=== PATIENT | female | born 1965 | race Caucasian/White ===

== ENCOUNTER 2021-09-26 06:43 | Inpatient (IN) | payer OTHER ==
[~2021-09-26 06:43] MED LIST: Bupivacaine 0.5% 50 ML MDV ONE; Ketamine 17 MG in Sodium Chloride 0.9% 19.83 ML IV SCH; Ketamine 500 MG/5 ML MDV IV SCH; Lidocaine 1% with EPINEPHrine 1:100,000 50 ML MDV ONE; Meropenem 500 MG SDV ONE; cefOXitin 2 GM Vial ONE
[2021-09-26] MEDS ORDERED: Ondansetron 4 MG/2 ML SDV ONE (07:08)
[2021-09-26] MEDS ORDERED: fentaNYL 250 MCG/5 ML SDV ONE ×2 (07:08→08:42)
[2021-09-26] MEDS ORDERED: Succinylcholine 200 MG/10 ML MDV ONE (07:08)
[2021-09-26] MEDS ORDERED: Propofol 200 MG/20 ML SDV ONE (07:08)
[2021-09-26] MEDS ORDERED: Dexamethasone 4 MG/ML SDV ONE (07:08)
[2021-09-26] MEDS ORDERED: Glycopyrrolate 0.2 MG/ML 5 ML MDV ONE (07:08)
[2021-09-26] MEDS ORDERED: Rocuronium 50 MG/5 ML Vial ONE ×2 (07:08→09:21)
[2021-09-26] MEDS ORDERED: Neostigmine Methylsulfate 1 MG/ML 5 ML Syringe ONE (07:08)
[2021-09-26] MEDS ORDERED: Lactated Ringers 1,000 ML ONE (07:11)
[2021-09-26] MEDS ORDERED: Albuterol/Ipratropium 3.0-0.5 MG/3 ML Neb Soln NEB ONE (07:15)
[2021-09-26] MEDS ORDERED: Celecoxib 200 MG Cap PO ONE (07:16)
[2021-09-26] MEDS ORDERED: Acetaminophen 500 MG Tab PO ONE (07:17)
[2021-09-26] MEDS ORDERED: cefOXitin 2 GM in Sodium Chloride 0.9% 50 ML IV ONE (07:25)
[2021-09-26] MEDS ORDERED: Scopolamine 1.5 MG Transdermal Patch TOP ONE (07:28)
[2021-09-26] MEDS ORDERED: Dextrose 5%-Lactated Ringers 1,000 ML IV SCH ×2 (07:45→12:00)
[2021-09-26 07:52] LABS: HEMOGLOBIN A1C 6.6 % (4.5-6.2)
[2021-09-26] MEDS ORDERED: Labetalol 20 MG/4 ML Syringe ONE (10:00)
[2021-09-26] MEDS ORDERED: 50% Dextrose in Water 50 ML Syringe IVPUSH PRN ×2 (10:54→12:00)
[2021-09-26] MEDS ORDERED: Glucagon,Human Recombinant 1 MG Vial IM PRN ×2 (10:54→12:00)
[2021-09-26] MEDS ORDERED: Insulin Lispro 100 Unit/ML 3 ML KwikPen SUBCUT ONE (11:15)
[2021-09-26] MEDS ORDERED: hydrOXYzine HCL 100 MG/2 ML SDV IM ONE (11:30)
[2021-09-26] MEDS ORDERED: Cyclobenzaprine 10 MG Tab PO PRN (11:52)
[2021-09-26] MEDS ORDERED: diphenhydrAMINE 50 MG/ML SDV IVPUSH PRN (12:00)
[2021-09-26] MEDS ORDERED: oxyCODONE 5 MG Tab PO PRN (12:00)
[2021-09-26] MEDS ORDERED: Labetalol 20 MG/4 ML Syringe IVPUSH PRN (12:00)
[2021-09-26] MEDS ORDERED: hydrOXYzine HCL 100 MG/2 ML SDV IM PRN (12:00)
[2021-09-26] MEDS ORDERED: HYDROmorphone 0.5 MG/0.5 ML Syringe IVPUSH PRN (12:00)
[2021-09-26] MEDS ORDERED: Acetaminophen 500 MG Tab PO PRN (12:00)
[2021-09-26] MEDS ORDERED: Acetaminophen 500 MG Tab PO SCH (12:00)
[2021-09-26] MEDS ORDERED: HYDROmorphone 1 MG/ML Syringe IV PRN (12:00)
[2021-09-26] MEDS ORDERED: Metoclopramide 10 MG/2 ML SDV IVPUSH PRN (12:00)
[2021-09-26] MEDS ORDERED: Albuterol/Ipratropium 3.0-0.5 MG/3 ML Neb Soln INH PRN (12:00)
[2021-09-26] MEDS: Ondansetron 4 MG/2 ML SDV IVPUSH PRN ×2 (12:20→20:51)
[2021-09-26] MEDS: Lactated Ringers 1,000 ML IV SCH (12:22)
[2021-09-26] MEDS ORDERED: Pantoprazole 40 MG Vial IVPUSH SCH (13:00)
[2021-09-26] MEDS: SCOPOLAMINE PATCH CHECK TOP SCH (14:04)
[2021-09-26] MEDS: Albuterol/Ipratropium 3.0-0.5 MG/3 ML Neb Soln INH SCH ×2 (14:11→20:59)
[2021-09-26] MEDS: cefOXitin 2 GM in Sodium Chloride 0.9% 50 ML IV SCH ×2 (14:31→19:58)
[2021-09-26] MEDS: Acetaminophen 500 MG Tab PO SCH ×2 (14:32→22:07)
[2021-09-26] MEDS: Insulin Lispro 100 Unit/ML 3 ML KwikPen SUBCUT SCH ×3 (16:59→22:04)
[2021-09-26] MEDS: MVI, Adult with Vitamin K 10 ML, Thiamine 200 MG, Zinc/Copper/Manganese/Selenium 1 ML i... IV SCH ×4 (16:59)
[2021-09-26] MEDS: Heparin Sodium 5,000 Units/ML Vial SUBCUT SCH (17:02)
[2021-09-26] MEDS: traMADol 50 MG Tab PO PRN (19:24)
[2021-09-26] MEDS: Formoterol/Mometasone 100-5 MCG 8.8 GM Inhaler IH SCH (20:57)
[2021-09-26] MEDS ORDERED: Lactated Ringers 500 ML IV ONE (23:45)
[2021-09-27] MEDS: Lactated Ringers 1,000 ML IV SCH (01:38)
[2021-09-27] MEDS: cefOXitin 2 GM in Sodium Chloride 0.9% 50 ML IV SCH ×4 (01:42→20:07)
[2021-09-27] MEDS ORDERED: Lactated Ringers 500 ML IV ONE (02:45)
[2021-09-27] MEDS: Insulin Lispro 100 Unit/ML 3 ML KwikPen SUBCUT SCH ×4 (04:22→21:36)
[2021-09-27] MEDS: Acetaminophen 500 MG Tab PO SCH ×3 (05:02→21:35)
[2021-09-27] MEDS: Heparin Sodium 5,000 Units/ML Vial SUBCUT SCH ×2 (05:12→06:16)
[2021-09-27] MEDS: Formoterol/Mometasone 100-5 MCG 8.8 GM Inhaler IH SCH ×2 (07:25→20:08)
[2021-09-27] MEDS: Albuterol/Ipratropium 3.0-0.5 MG/3 ML Neb Soln INH SCH ×4 (07:25→20:08)
[2021-09-27] MEDS: SCOPOLAMINE PATCH CHECK TOP SCH (08:09)
[2021-09-27] MEDS: Celecoxib 200 MG Cap PO SCH ×2 (08:09→08:11)
[2021-09-27] MEDS: Losartan 50 MG Tab PO SCH (08:10)
[2021-09-27] MEDS: Pantoprazole 40 MG Delayed-Release Granules 1 Packet PO SCH (10:35)
[2021-09-27] MEDS: traMADol 50 MG Tab PO PRN (16:04)
[2021-09-27] MEDS: MVI, Adult with Vitamin K 10 ML, Thiamine 200 MG, Zinc/Copper/Manganese/Selenium 1 ML i... IV SCH ×4 (16:05)
[2021-09-28] MEDS: Lactated Ringers 1,000 ML IV SCH (01:03)
[2021-09-28] MEDS: cefOXitin 2 GM in Sodium Chloride 0.9% 50 ML IV SCH ×2 (01:08→08:33)
[2021-09-28] MEDS: traMADol 50 MG Tab PO PRN (03:56)
[2021-09-28] MEDS: Insulin Lispro 100 Unit/ML 3 ML KwikPen SUBCUT SCH ×4 (03:58→21:39)
[2021-09-28] MEDS ORDERED: Iopamidol 612 MG/ML 50 ML SDV PO ONE (04:10)
[2021-09-28] MEDS: Acetaminophen 500 MG Tab PO SCH ×3 (05:19→21:38)
[2021-09-28] MEDS: Albuterol/Ipratropium 3.0-0.5 MG/3 ML Neb Soln INH SCH ×4 (06:58→20:24)
[2021-09-28] MEDS: Formoterol/Mometasone 100-5 MCG 8.8 GM Inhaler IH SCH ×2 (06:59→20:24)
[2021-09-28] MEDS ORDERED: Ondansetron 4 MG Tab.DIS PO PRN (07:09)
[2021-09-28] MEDS: SCOPOLAMINE PATCH CHECK TOP SCH (08:15)
[2021-09-28] MEDS: Losartan 50 MG Tab PO SCH (08:33)
[2021-09-28] MEDS ORDERED: Cyanocobalamin (Vitamin B12) 1,000 MCG/ML SDV IM ONE (09:00)
[2021-09-28] MEDS ORDERED: NOVOLOG INSULIN PUMP SUBCUT SCH (10:45)
[2021-09-28] MEDS: Pantoprazole 40 MG Delayed-Release Granules 1 Packet PO SCH (11:19)
[2021-09-28] MEDS ORDERED: Sodium Chloride 0.65% Nasal Spray 45 ML Bottle NAS PRN (14:43)
[2021-09-29] MEDS: Insulin Lispro 100 Unit/ML 3 ML KwikPen SUBCUT SCH ×4 (04:14→21:32)
[2021-09-29] MEDS: Acetaminophen 500 MG Tab PO SCH ×3 (05:09→21:30)
[2021-09-29] MEDS ORDERED: Sodium Chloride 0.9% 10 ML Syringe FLUSH ONE (07:06)
[2021-09-29] MEDS ORDERED: Sodium Chloride 0.9% 50 ML IV SCH (07:15)
[2021-09-29] MEDS ORDERED: Iopamidol 612 MG/ML 100 ML Bottle IV SCH (07:15)
[2021-09-29] MEDS: Albuterol/Ipratropium 3.0-0.5 MG/3 ML Neb Soln INH SCH ×4 (07:31→20:15)
[2021-09-29] MEDS: Formoterol/Mometasone 100-5 MCG 8.8 GM Inhaler IH SCH ×2 (07:31→20:19)
[2021-09-29] MEDS ORDERED: Tranexamic Acid 1,000 MG in Sodium Chloride 0.9% 50 ML IV ONE (09:00)
[2021-09-29] MEDS: Potassium Chloride 10 MEQ Cap.ER PO SCH ×2 (09:12→20:18)
[2021-09-29] MEDS: Losartan 50 MG Tab PO SCH (09:21)
[2021-09-29] MEDS: Pantoprazole 40 MG Delayed-Release Granules 1 Packet PO SCH (11:53)
[2021-09-29] MEDS ORDERED: Benzocaine/Cetylpyridinium/Menthol Lozenge MUCMEM PRN (20:12)
[2021-09-30] MEDS: Acetaminophen 500 MG Tab PO SCH (05:33)
[2021-09-30] MEDS: Insulin Lispro 100 Unit/ML 3 ML KwikPen SUBCUT SCH ×2 (05:36→10:19)
[2021-09-30] MEDS: Albuterol/Ipratropium 3.0-0.5 MG/3 ML Neb Soln INH SCH ×2 (07:22→10:44)
[2021-09-30] MEDS: Formoterol/Mometasone 100-5 MCG 8.8 GM Inhaler IH SCH (07:22)
[2021-09-30] MEDS: Potassium Chloride 10 MEQ Cap.ER PO SCH (08:40)
[2021-09-30] MEDS: Losartan 50 MG Tab PO SCH (08:40)
[2021-09-30] MEDS: Pantoprazole 40 MG Delayed-Release Granules 1 Packet PO SCH (11:44)
== END 2021-09-30 12:15 | disposition home or self-care (01) | DRG 620 ==
LOC: JP.SDS 06:55 → JP.MS 06:55 → EDSTATUS 07:15 → JP.MS 11:38
PROVIDERS: ADMIT Surgery; ATTEND Surgery
PROC: 0D164ZA Bypass Stomach to Jejunum, Percutaneous Endoscopic Approach (ICD-10-PCS; 2021-09-26)
PROC: 0FB04ZX Excision of Liver, Percutaneous Endoscopic Approach, Diagnostic (ICD-10-PCS; 2021-09-26)
PROC: 0BQT4ZZ Repair Diaphragm, Percutaneous Endoscopic Approach (ICD-10-PCS; 2021-09-26)
PROC: 0DNU4ZZ Release Omentum, Percutaneous Endoscopic Approach (ICD-10-PCS; 2021-09-26)
PROC: 30233N1 Transfusion of Nonautologous Red Blood Cells into Peripheral Vein, Percutaneous Approach (ICD-10-PCS; principal; 2021-09-27)
DX: E66.01 Morbid (severe) obesity due to excess calories (principal); K92.1 Melena; R16.0 Hepatomegaly, not elsewhere classified; K44.9 Diaphragmatic hernia without obstruction or gangrene; I10 Essential (primary) hypertension; E78.49 Other hyperlipidemia; E13.69 Other specified diabetes mellitus with other specified complication; M17.0 Bilateral primary osteoarthritis of knee; K21.00 Gastro-esophageal reflux disease with esophagitis, without bleeding; F41.9 Anxiety disorder, unspecified; J45.20 Mild intermittent asthma, uncomplicated; Z88.8 Allergy status to other drugs, medicaments and biological substances; Z79.4 Long term (current) use of insulin; Z68.41 Body mass index [BMI] 40.0-44.9, adult
CPT/HCPCS: 36415; 36430; 74177; 74240; 74240-26; 80053; 82947; 83036; 83735; 83880; 84100; 85027; 86850; 86900; 86901; 86920; 86922; 88307; 88313; 93005; 94640; 94762; A9270-GY; C9113; J0171; J0330; J0694; J1100; J1644; J1815; J2020; J2185; J2405; J2704; J2710; J2795; J3010; J3410; J3411; J3420; J3490; J7120; J7121; J7620; P9016; Q9967

== ENCOUNTER 2022-06-28 06:47 | Day surgery (SDC) | payer OTHER ==
[2022-06-28] MEDS ORDERED: Midazolam 1 MG/ML 2 ML SDV ONE (07:07)
[2022-06-28] MEDS ORDERED: fentaNYL 50 MCG/ML SDV ONE (07:08)
[2022-06-28] MEDS ORDERED: Propofol 200 MG/20 ML SDV ONE (07:08)
[2022-06-28] MEDS ORDERED: Lactated Ringers 1,000 ML IV ONE (07:30)
[2022-06-28] MEDS ORDERED: Cyanocobalamin (Vitamin B12) 1,000 MCG/ML SDV IM ONE (07:30)
[2022-06-28] MEDS ORDERED: Glycopyrrolate 0.2 MG/ML 2 ML SDV IVPUSH ONE (08:15)
[2022-06-28] MEDS ORDERED: MVI, Adult with Vitamin K 10 ML, Thiamine 200 MG, Zinc/Copper/Manganese/Selenium 1 ML i... IV ONE ×4 (08:30)
== END 2022-06-28 11:16 | disposition home or self-care (01) ==
LOC: JP.SDS 06:47
PROVIDERS: ATTEND Surgery
DX: R13.10 Dysphagia, unspecified (principal); I10 Essential (primary) hypertension; J45.909 Unspecified asthma, uncomplicated; G47.33 Obstructive sleep apnea (adult) (pediatric); K21.9 Gastro-esophageal reflux disease without esophagitis; E11.9 Type 2 diabetes mellitus without complications; E66.01 Morbid (severe) obesity due to excess calories; M19.90 Unspecified osteoarthritis, unspecified site; Z98.84 Bariatric surgery status; Z79.899 Other long term (current) drug therapy; Z98.890 Other specified postprocedural states; Z88.8 Allergy status to other drugs, medicaments and biological substances
CPT/HCPCS: 36415; 76000; 82728; 87081; J2250; J2704; J3010; J3411; J3420; J3490; J7120